=== PATIENT | female | born 1970 | race Caucasian/White ===

== ENCOUNTER → 2021-04-09 | Day surgery (SDC) | payer OTHER ==
[~2021-04-09] VITALS: Ht 175.3 cm; Wt 144.2 kg
[~2021-04-09] MED LIST: BALANCED B-501 EACH PO; CHROMIUM PIC1000 MCG PO; LAMICTAL100 MG PO; LANTUS **100 UNITS/ SC; LIPITOR 10MG TA10 MG PO; LISINOPRIL-HCT1 EAC2 PO; NEURONTIN300 MG PO; NORCO 5-325 TA1 EACH PO; RISPERDAL2 MG PO; VITAMIN D3 COM1 EACH PO; XANAX0.5 MG PO
[2021-04-09 07:31] LABS: HCG (URINE) SCREEN NEGATIVE (NEGATIVE)
[2021-04-09 08:28] LABS: BUN/CREAT RATIO (CALC) 19.6 RATIO; CREATININE 1.02 mg/dL (0.51-0.95); POTASSIUM 3.6 mmol/L (3.5-5.1)
== END | disposition home or self-care (01) ==
LOC: FAS 06:41
PROVIDERS: Anesthesiology
DX: K80.10 Calculus of gallbladder with chronic cholecystitis without obstruction (principal); K42.0 Umbilical hernia with obstruction, without gangrene; K43.6 Other and unspecified ventral hernia with obstruction, without gangrene; K76.0 Fatty (change of) liver, not elsewhere classified; E11.9 Type 2 diabetes mellitus without complications; F31.9 Bipolar disorder, unspecified; I10 Essential (primary) hypertension; E78.00 Pure hypercholesterolemia, unspecified; G40.909 Epilepsy, unspecified, not intractable, without status epilepticus; E66.01 Morbid (severe) obesity due to excess calories; G47.30 Sleep apnea, unspecified; Z87.891 Personal history of nicotine dependence; Z68.42 Body mass index [BMI] 45.0-49.9, adult; Z88.5 Allergy status to narcotic agent; Z88.8 Allergy status to other drugs, medicaments and biological substances; Z79.4 Long term (current) use of insulin; Z79.899 Other long term (current) drug therapy
CPT/HCPCS: 36415; 80048; 84703; 93005; J0295; J1170; J2250; J2405; J2704; J2710; J3010; J7120